=== PATIENT | male | born 1985 | race Caucasian/White ===

== ENCOUNTER 2021-08-17 15:31 | Emergency (ER) | payer BC, SELFPAY ==
--- NOTE | ~2021-08-17 | XR_ITS ---
EXAM: XR hand RT min 3V HISTORY: right hand swelling,PAIN TO 4TH METACARPAL, INJURY 3 WKS AGO COMPARISON: None available FINDINGS: 3 mm radiopaque foreign body within the dorsal lateral cortex of the fourth proximal phala nge with surrounding lucency. Normal mineralization. No fracture or dislocation. Joint spaces maintai bernadette. Soft tissues within normal limits. IMPRESSION: Foreign body in the dorsal lateral cortex of the fourth proximal phalange with findings concerning fo r osseous infection. Reviewed, dictated and finalized at location K. IMPRESSION: Foreign body in the dorsal lateral cortex of the fourth proximal phalange with findings concerning for osseous infection.
[2021-08-17 15:34] VITALS: BP 139/96; PULSE 86; RESP 16; TEMP 36.5; O2SAT 98
--- NOTE | 2021-08-17 17:48 | ED.GENADULT ---
HPI - General Adult General Chief complaint: Extremity Injury, Upper Stated complaint: Right Hand Wound Time Seen by Provider: 08/17/21 16:49 History of Present Illness HPI narrative: Patient is a 36-year-old male with a history of methamphetamine use, who presents emergency department for evaluation of left hand pain and swelling for the past 2 days. Patient states he was cutting sheet metal and believes that he got a piece stuck in his hand, but he did not seek medical evaluation at that time because his hand did not hurt. Pain developed yesterday and he also notes a wound over the dorsal aspect of his left hand that has been draining serous material. Denies fevers, chills, nausea, vomiting, other systemic symptoms. He has been taking ibuprofen for the pain. No history of IV drug use or diabetes. Related Data Allergies Allergy/AdvReac Type Severity Reaction Status Date / Time No Known Allergies Allergy Mild Verified 11/16/07 17:55 Review of Systems Review of Systems: Gen.: Denies fevers or chills Eyes: Denies eye pain or visual change ENT: Denies congestion Respiratory: Denies shortness of breath or cough CV: Denies chest pain or palpitations GI: Denies abdominal pain nausea, emesis or diarrhea denies burning, urgency, frequency or hematuria Musculoskeletal: Positive for left hand pain. Denies back pain or muscle pain Neuro: Denies numbness, tingling, weakness or focal weakness Skin: Wound over left hand. Except as documented, all other systems reviewed and negative All systems reviewed & are unremarkable except as noted in HPI and below Exam Narrative: APPEARANCE: Well appearing, no pain in distress, well-nourished. Head normocephalic and atraumatic. EYES: PERRLA/EOMI, conjunctivae clear NOSE: No nasal drainage EARS: External ear normal in appearance THROAT: Oropharynx is clear. Mucous membranes are moist. NECK: Supple. No adenopathy, no masses. RESPIRATORY: Airway patent, respirations nonlabored. Clear to auscultation bilaterally, no rales, rhonchi, wheezing. CARDIOVASCULAR: Regular rate and rhythm without murmurs, rubs, or gallops. ABDOMINAL: Normoactive bowel sounds. Soft, nontender, nondistended. No rebound tenderness or guarding. MUSCULOSKELETAL: Patient has a 2 cm area of tenderness, swelling and erythema over the dorsum of the left third MCP. Sensation intact over the entirety of hand. No difficulty moving digits or hand. NEURO: Normal speech. No focal neurologic deficits. SKIN: Patient has a 1 cm, circular, shallow ulceration over the dorsum of left third MCP; no drainage of purulent material. PSYCHIATRIC: Normal affect/mood. Course Consultations Consultation #1: Spoke with Dr. Ryan, hand plastic surgeon, about patient's case and concern for retained foreign body. Agrees with plan for 1 dose of IV Ancef in ED and discharged with Keflex until he can see him in outpatient office for evaluation. Date: 08/17/21 Time: 19:00 Vital Signs Vital signs: Vital Signs Temperature 97.7 F 08/17/21 15:34 Pulse Rate 86 08/17/21 15:34 Respiratory Rate 16 08/17/21 15:34 Blood Pressure 139/96 H 08/17/21 15:34 Pulse Oximetry 98 08/17/21 15:34 Temperature 97.7 F 08/17/21 19:27 Pulse Rate 78 08/17/21 19:34 Respiratory Rate 18 08/17/21 19:34 Blood Pressure 138/94 H 08/17/21 19:34 Pulse Oximetry 97 08/17/21 19:34 Medical Decision Making MDM Narrative Medical decision making narrative: 36-year-old male here with left hand pain and concern for retained foreign body on x-ray. Vital signs stable, afebrile, no leukocytosis, ESR 15. Patient nontoxic-appearing, and pain controlled with ibuprofen/ Tylenol. History of methamphetamine use, but no IV drug use or diabetes to suggest immunocompromise status. Spoke with Dr. Ryan, hand surgeon, about patient's case, will cover with Ancef in ED, and discharge home with Keflex until Dr. Ryan can see him in office. Patient in agreement with plan; emphas
[2021-08-17 17:54] LABS: Basophils Absolute Auto 0.1 K/mm3 (0.0-0.1); Basophils Percent Auto 0.5 % (0.2-1.2); Eosinophils Absolute Auto 0.7 K/mm3 (0-0.3); Eosinophils Percent Auto 7.5 % (0-4.4); Hematocrit 40.8 % (42.0-52.0); Hemoglobin 13.6 g/dL (14.0-18.0); Immature Granulocyte Absolute 0.02 K/mm3 (0.00-0.031); Immature Granulocyte Percent A 0.2 % (0-0.5); Lymphocytes Absolute Auto 2.02 K/mm3 (0.9-3.2); Lymphocytes Percent Auto 20.6 % (18.3-44.2); Mean Corpuscular HGB Conc 33.3 g/dl (32-36); Mean Corpuscular Hemoglobin 31.9 pg (26-34); Mean Corpuscular Volume 95.6 fl (80-100); Monocytes Absolute Auto 0.6 K/mm3 (0.1-0.6); Monocytes Percent Auto 6.2 % (2.6-8.5); Neutrophils Absolute Auto 6.4 K/mm3 (1.3-6.7); Platelet Count Result 294 k/mm3 (150-375); Red Blood Count 4.27 M/mm3 (4.6-6.20); Red Cell Distribution Width 13.2 % (11.5-14.5); White Blood Count 9.8 K/mm3 (4.5-10.0)
--- NOTE | 2021-08-17 18:45 | PC.NURSE ---
Per CAMERON Erickson, do not give PO Keflex.
[2021-08-17 18:56] LABS: Erythrocyte Sedimentation Rate 15 mm/hr (0-20)
[2021-08-17] MEDS: ACETAMINOPHEN 325 MG TABLET 650 MG PO (18:57)
[2021-08-17] MEDS: IBUPROFEN 600 MG TABLET PO (18:57)
[2021-08-17] MEDS: TETANUS,DIPHTHERIA,AC PERTUSSIS ADULT (0.5 ML) BOOSTRIX IM (18:58)
[2021-08-17 19:27] VITALS: TEMP 36.5
[2021-08-17] MEDS: ceFAZolin SODIUM 1 GM VIAL IV PUSH (19:32)
--- NOTE | 2021-08-17 19:33 | PC.NURSE ---
Medication would not scan properly but was verified by two RN's before being given.
[2021-08-17 19:34] VITALS: BP 138/94; PULSE 78; RESP 18; O2SAT 97
== END 2021-08-17 19:36 | disposition home or self-care (01) ==
PROVIDERS: Physician Assistant; Emergency Provider Emergency Medicine
DX: S60.454A Superficial foreign body of right ring finger, initial encounter (principal); Z23 Encounter for immunization; W45.8XXA Other foreign body or object entering through skin, initial encounter
CPT/HCPCS: 36415; 73130; 85025; 85652; 87040; 90471; 90715; 96372; 96374; 99283; 99284; A9270; J0690

== ENCOUNTER 2021-08-21 00:39 | Day surgery (SDC) | payer BC, SELFPAY ==
[2021-08-20 15:23] VITALS: BMI 30.4
--- NOTE | 2021-08-20 15:40 | PC.NURSE ---
Report to the Outpatient Waiting Room, entrance under the green pavilion located off [facility], at time _1030 on date __07/22 . OR Time: __1230 . - You and your visitor will be asked a series of questions to screen for COVID 19 for your protection. - Only one visitor is allowed at this time. - The patient visitor is requested to leave or wait in car when not with patient. - A mask is required within the hospital. Patients may have clear liquids (water, carbonated beverages, clear teas, apple juice) until 3 hours prior to surgery with a maximum of 20 ounces. - No food from midnight until time of surgery NOTHING TO DRINK AFTER 0930 IN THE MORNING - Infants may have breast milk until 4 hours before surgery, formula 6 hours prior to surgery. - Children will be allowed to drink immediately following surgery. If applicable, please bring a bottle or sippy cup to assist with drinking. Juice, water, soda, and popsicles are readily available. For infants on formula, please bring formula the day of surgery. Pacifiers are allowed. Take the following medications with a SIP of water the morning of surgery: ____N/A Medications to discontinue per physician N/A Date to take last dose Please no make-up, nail czech, hairspray, perfume, deodorant, or body powder the day of surgery. No jewelry (including any body piercings) or valuables the day of surgery, leave them at home. Please take a shower or bath the night before, or the morning of, surgery with an antibacterial soap. Wear comfortable, loose fitting clothing. Children are encouraged to wear pajamas. - Jewelry must be removed prior to entering the operating room. Rings and piercings that are not removed may be cut off. - The hospital will not accept responsibility for valuables. - Please leave all valuables, including medications, at home the day of surgery. If you are going home after surgery, a licensed log truck driver must drive you home. - NO public transportation without another adult. - We recommend that an adult stay with you for 24 hours following discharge. - We also recommend that you do not drive, make important decision, drink alcoholic beverages, or take any drugs that were not prescribed by your health care provider for at least 24 hours after your discharge time. For Pediatric surgeries, we recommend two adults accompany the child home (only one inside the building at this time). Follow any additional instructions given to you from your surgeon. If you or anyone in your household have experienced Covid symptoms in the past week, please notify your surgeon or the nurse liaison at the phone number below for possible testing. Telephone instructions given to ____PATIENT and asked if any additional questions and then verbalized understanding. Patient advised to call surgeon office or pre surgery nurse liaison [phone] if any additional questions.
[2021-08-21] VITALS (7 sets, daily range): BP systolic 126–163; BP diastolic 66–90; PULSE 69–89; RESP 16–20; TEMP 36.1; O2SAT 98–100
--- NOTE | ~2021-08-21 | XR_ITS ---
EXAMINATION: XR surgery orthopedic DATE: 08/21/2021 13:45 INDICATION: Foreign body removal from the fourth digit TECHNIQUE: 3 fluoroscopic images of the right fourth proximal phalanx were obtained during procedure performed by Dr. Ryan. Radiologist was not present for the imaging or procedure. The amount of fluor oscopy time used during this procedure was 0.3 minutes. COMPARISON: 08/17/2021 FINDINGS: Initial image demonstrate the tips of a forcep along either side of the previous noted very small met allic foreign body with surrounding lucency along the dorsal/ulnar cortex of the distal diaphysis of the fourth proximal phalanx. The foreign body has been removed on the subsequent 2 images with residu al cortical erosion with sclerotic margins. No fracture. Bone alignment is normal. The profiled joint spaces are normal. IMPRESSION: 1. Fluoroscopy utilized for removal of a tiny foreign body with surrounding cortical erosion at the r ight fourth proximal phalanx. Reviewed, dictated and finalized at location A. IMPRESSION: 1. Fluoroscopy utilized for removal of a tiny foreign body with surrounding cor tical erosion at the right fourth proximal phalanx.
--- NOTE | 2021-08-21 06:57 | WPDHPUPDATE1 ---
History and Physical Update Update Date/Time: 08/21/21 06:57 History and Physical has been reviewed, including an updated exam of the patient. There are NO changes in the patient's condition. Risks, benefits, and alternatives have been discussed and questions answered. Patient agrees to proceed with procedure.
[2021-08-21] MEDS: LACTATED RINGERS 1,000 ML 30 ML IV CONT (11:20)
--- NOTE | 2021-08-21 11:45 | WPDANESEPPF ---
Anes - Initial Pre Proc Eval Procedure: Operation Date: 08/21/21 12:30 Proposed Procedures p Incision and Drainage Right Middle Finger Metacarpophalangeal Joint, Removal Foreign Body Proximal Phalanx Right Middle Finger - Chao Ryan MD Date/Time: 08/21/21 11:45 Surgeon: Chao Ryan MD Pre Op Diagnosis: FB proximal phlanx right middle finger Patient Data Age: 36 Gender: M Height: 1.73 m Weight: 79.2 kg Last Vital Signs Temp 36.1 C L 08/21/21 11:13 Pulse 83 08/21/21 11:13 Resp 16 08/21/21 11:13 BP 127/84 08/21/21 11:13 Pulse Ox 99 08/21/21 11:13 Allergies Allergy/AdvReac Type Severity Reaction Status Date / Time No Known Allergies Allergy Mild Verified 08/21/21 10:47 Home Medications Medication Instructions Recorded Confirmed Type cephalexin 500 mg PO Q6H #28 cap 08/17/21 08/21/21 Rx ibuprofen 200 mg PO Q6H PRN 08/21/21 08/21/21 History Patient hx anesthesia problems: none Family hx anesthesia problems: none Results Review: All pre-operative results and documents have been reviewed as part of the pre-operative evaluation. [facility] Past Medical History Medical History Anxiety Bipolar disorder Depression Social History Social History Smoking packs per day: 1 Smoking cigarettes per day: 20.0 Years smoked: 15 Smoking pack-years: 15.00 Smoking status: Current every day smoker Tobacco type: cigarettes Substance use: current Substance use type: methamphetamine Living arrangements: with family Anes - Eval Final PreProcedure Day of Procedure 08/21/21 11:45 Patient weight: overweight Heart: regular rate and rhythm Lungs: decreased breath sounds Airway: Mallampati scale class II Neurological: alert and oriented Last oral intake: >/= 8 hours ASA classification: III Emergent: no Anesthetic plan: proceed Anesthesia type and monitoring: general LMA and standard monitoring Results Review: All pre-operative results and documents have been reviewed as part of the pre-operative evaluation. Informed Consent: The patient's anesthetic plan and its attendant risks and benefits were discussed with the patient/family/POA. Questions were solicited and answers provided to the satisfaction of the patient/family/POA.
[2021-08-21] MEDS: LIDO 1%/EPINEPHRINE 1:100,000 50 ML VIAL 10 ML INFILTRATE (12:50)
[2021-08-21] MEDS: ceFAZolin 2 GM/D5W 50 ML 2 GM/50 ML BAG IVPB (12:59)
--- NOTE | 2021-08-21 15:14 | P.OP_ITS ---
Procedure Note - Detailed Date of Procedure 08/21/21 Pre-op Diagnosis FB proximal phalanx right ring finger Post-op Diagnosis Other (Resolving abscess the right middle metacarpophalangeal joint with partial extensor tendon rupture. Foreign body in the proximal phalanx of right ring finger with non inflammatory bone resorption) Procedure Performed I and D and sharp debridement of abscess cavity right middle metacarpophalangeal joint with extensor tendon injury. Removal of metallic foreign body proximal phalanx right ring finger. Surgeon Chao Ryan MD Drug Regulatory Affairs Specialist Hel[facility] Anesthesia General Indications Recent draining abscess of the right middle metacarpophalangeal joint. Incid ental radiologic finding of metallic foreign body proximal phalanx right ring finger with bone erosion. Findings Partial rupture of extensor digitorum comitans to the right middle finger at the metacarpophalangeal joint. Metallic foreign body without inflammatory response proximal phalanx right ring finger Description of Procedure The 2 sites were marked the patient as he waited in the holding area. He was taken to the operating placed supine on the operating table. He was given general endotracheal anesthesia. Time-out was held confirmed. The extremity was prepped draped usual fashion. The 2 sites were locally infiltrated with 1% lidocaine with epinephrine. The tourniquet inflated to 250 mmHg. A curving incision was made through the scabbed area over the right 3rd metacarpal phalangeal joint. There was no jeane pus identified. There was a lot of inflammatory response in this tissue with scarring and partial disruption of the is central portion of the extensor communis, but with clinically normal function. This area was debrided of thickened scar tissue and all cavities were exposed and irrigated. A culture was sent from this area. A 1 in by quarter- inch iodoform wick was placed over the tendon prior to skin closure. Incision was made on the ring finger after confirming the location of the foreign body with C-arm. The foreign body was identified under periosteum along the ulnar margin of the proximal phalanx. This was easily exposed and the foreign body removed. It appeared to be a small bent piece of wire. The soft tissue contents which comprised the lining of this saucerized cavity was curetted out. At this site there did not appear to be any inflammatory response. It appeared that the cavity is from movement of the foreign body. A culture was taken from this site. The contents of the cavity were sent for culture. This wound was closed with running 4 0 nylon. The tourniquet was released and the bandage was wrapped around the hand and fingers to contain both digits. The patient is discharged new prescription for hydrocodone 7.. He has a newly acquired antibiotic already. Seems the bed antibiotic had made considerable improvement in the inflammation of this digit in the past 1 day. Estimated Blood Loss 0 Drains No Packing Yes Pathology Yes Complications No immediate complications Condition Stable Disposition Same day
== END 2021-08-21 15:29 | disposition home or self-care (01) ==
PROVIDERS: Visit Provider Plastic Surgery
PROC: (CPT 11042; principal; 2021-08-21 12:30)
DX: L02.511 Cutaneous abscess of right hand (principal); W45.8XXA Other foreign body or object entering through skin, initial encounter
CPT/HCPCS: 11042; 10120; 87070; 87075; 87147; 87181; 87186; 87205; 88304; A9270; J0690; J1100; J2250; J2405; J2704; J3010; J7120